=== PATIENT | female | born 1990 | race Caucasian/White ===

== ENCOUNTER 2019-01-26 13:10 | Inpatient (IN) | payer MEDICAID ==
[~2019-01-26] VITALS: Ht 165.1 cm; Wt 78.6 kg
[2019-01-26 13:50] VITALS: Ht 165.1 cm; Wt 78.6 kg
[2019-01-26] MEDS ORDERED: OXYTOCIN 30 UNITS/LR 500 ML IV PRN (17:30)
[2019-01-26] MEDS ORDERED: AMPICILLIN 2 GM/NS (PMX) 100 ML IV ONE (17:30)
[2019-01-26] MEDS ORDERED: BUTORPHANOL 2 MG INJ IV PRN (17:30)
[2019-01-26] MEDS ORDERED: OXYTOCIN 30 UNITS/LR 500 ML IV SCH ×2 (17:30)
[2019-01-26] MEDS ORDERED: METHYLERGONOVINE 0.2 MG INJ IM PRN (17:30)
[2019-01-26] MEDS ORDERED: CARBOPROST 250 MCG INJ IM PRN (17:30)
[2019-01-26] MEDS ORDERED: LIDOCAINE 1% (MPF) 30 ML INJ INJ PRN (17:30)
[2019-01-26] MEDS ORDERED: MISOPROSTOL 200 MCG TAB PR PRN (17:30)
[2019-01-26] MEDS ORDERED: MISOPROSTOL 50 MCG CAPSULE VAG ONE (20:00)
[2019-01-26] MEDS: MISOPROSTOL 50 MCG CAPSULE PO PRN (20:10)
--- NOTE | 2019-01-26 20:16 | HP ---
Date/Time of Note Date/Time of Note DATE: 01/26/19 TIME: 20:11 OB - History Hx of Present Chief Complaint: contractions Estimated Due Date: Jan 24, 2019 : 3 Para: 0 Spontaneous : 2 Therapeutic : 0 Care: Good Care Ultrasounds: Normal mid trimester US Obstetrical Complications: None Medical Complications: None Past Family/Social History * Past Medical, Surgical, Family and Obstetric Histories reviewed from chart. GBS Status: Positive OB Admission Exam Physical Exam HEENT: WNL Heart: Rhythm Normal Lungs: Clear, Equal Abdomen: WNL Extremities: Normal Reflexes: Normal Cervical Dilatation: Fingertip Effacement: 50% Station: -1 Membranes: Intact Heart Rate: 120's Accelerations: Accelerations Present Decelerations: No Decelerations Varibility: Moderate Contractions on Admission: 6-10 Minutes Apart Intensity: Mild Last 72 hours Lab Results CBC & BMP 01/26/19 17:00 OB Assessment/Plan Reason for admission: induction of labor Plan: Induction Induction Method: per Misoprostol Protocol JACKIE PEDRO MD Jan 26, 2019 20:16
[2019-01-26] MEDS: LACTATED RINGER'S 1,000 ML IV SCH (21:25)
[2019-01-26] MEDS ORDERED: AL HYDROX/MG HYDROX/SIMETH 30 ML CUP PO ONE (23:00)
[2019-01-27] MEDS: MISOPROSTOL 50 MCG CAPSULE PO PRN ×4 (00:08→12:08)
[2019-01-27] MEDS: AMPICILLIN 1 GM/NS (PMX) 50 ML IV SCH ×6 (00:08→21:31)
[2019-01-27] MEDS: LACTATED RINGER'S 1,000 ML IV SCH ×4 (05:32→18:04)
[2019-01-27] MEDS ORDERED: FENTAnyl 2MCG/ML-ROPIV 0.2% 100 ML ONE (13:22)
--- NOTE | 2019-01-27 13:28 | PREAC ---
Date/Time of Note Date/Time of Note DATE: 01/27/19 TIME: 13:25 Anesthesia Eval and Record Evaluation Time Pre-Procedure Interview DATE: 01/27/19 TIME: 13:25 Age 28 Sex female NPO: 8 hrs Preoperative diagnosis LABOR PAIN Planned procedure LABOR EPIDURAL Past Medical History Past Medical History: Includes : : (3), Para: (0), Gestational age: (40 3/7 WKS) Surgery & Anesthesia Issues No known issue Meds Anticoagulation: No Beta Delfino within 24 hr: No Reason Beta Delfino not given: Pt. not on B-Delfino Current Medications Lactated Ringer's 1,000 ml @ 125 mls/hr Q8H IV Last administered on 01/27/19at 05:32; Admin Dose 125 MLS/HR; Start 01/26/19 at 17:18 Ampicillin 50 ml @ 100 mls/hr Q4H IV Last administered on 01/27/19at 12:07; Admin Dose 100 MLS/HR; Start 01/26/19 at 21:30 Butorphanol Tartrate (Stadol) 2 mg Q2H PRN IV .PAIN SCALE 6-10 Last administered on 01/27/19at 09:24; Admin Dose 2 MG; Start 01/26/19 at 17:30 Lidocaine (Xylocaine 1% (Mpf)) 30 ml ONCE PRN INJ .EPISIOTOMY; Start 01/26/19 at 17:30 Oxytocin/Lactated Ringer's 500 ml @ 500 mls/hr ONCE POST IV ; Start 01/26/19 at 17:30 Oxytocin/Lactated Ringer's 500 ml @ 125 mls/hr POST IV ; Start 01/26/19 at 17:30 Oxytocin/Lactated Ringer's 500 ml @ 0 mls/hr ONCE PRN IV .VAGINAL BLEEDING; Start 01/26/19 at 17:30 Methylergonovine Maleate (Methergine) 0.2 mg ONCE PRN IM .VAGINAL BLEEDING; Start 01/26/19 at 17:30 Carboprost Tromethamine (Hemabate) 250 mcg ONCE PRN IM .VAGINAL BLEEDING; Start 01/26/19 at 17:30 Misoprostol (Cytotec) 1,000 mcg ONCE PRN NM .VAGINAL BLEEDING; Start 01/26/19 at 17:30 Misoprostol (Cytotec 50 Mcg Capsule) 50 mcg Q4 PRN PO INDUCE LABOR Last administered on 01/27/19at 12:08; Admin Dose 50 MCG; Start 01/26/19 at 20:30 Meds reviewed: Yes Allergies Coded Allergies: No Known Allergy (Unverified , 01/26/19) Allergies Reviewed: Yes Labs/Studies Labs Reviewed: Reviewed by anesthesiologist Result Diagram: 01/26/19 1700 Laboratory Tests 01/26/19 17:00 Blood Bank Test 01/26/19 17:00 Antibody Screen NEGATIVE Blood Type O POSITIVE Rh Immune Globulin Candidate NO test: N/A Pre-procedure Exam Airway: Adequate mouth opening, Adequate thyromental dist Mallampati: Mallampati II Teeth: Normal Lung: Normal Heart: Normal ASA Physical Status ASA physical status: 2 Emergency: None Planned Anesthetic General/MAC: MAC Planned Pain Management Parenteral pain med Pre-operative Attestations Prior to commencing anesthesia and surgery, the patient was re-evaluated, there was verification of: *The patient's identity *The results of appropriate recent lab work and preoperative vital signs *The above evaluation not changing prior to induction *Anesthetic plan, risk benefits, alternative and complications discussed with patient/family; questions answered; patient/family understands, accepts and wishes to proceed. Eladio Joseph M.D. Jan 27, 2019 13:28
[2019-01-27] MEDS ORDERED: ONDANSETRON 4 MG INJ IV PRN (13:30)
[2019-01-27] MEDS ORDERED: FENTAnyl 2MCG/ML-ROPIV 0.2% 100 ML BAG EPI SCH (13:30)
[2019-01-27] MEDS ORDERED: NALOXONE (0.4 MG/ML) INJ IV PRN (13:30)
[2019-01-27] MEDS ORDERED: TRIMETHOBENZAMIDE 100 MG/ML VIAL IM PRN (13:30)
[2019-01-27] MEDS ORDERED: DIPHENHYDRAMINE 50 MG INJ IV PRN (13:30)
--- NOTE | 2019-01-27 14:04 | PAC ---
Date/Time of Note Date/Time of Note DATE: 01/27/19 TIME: 14:03 Post-Anesthesia Notes Post-Anesthesia Note Last documented vital signs HR 77 RR 14 BP 112/65 T 98.6 Activity: WNL Respiratory function: WNL Cardiovascular function: WNL Mental status: Baseline Pain reasonably controlled: Yes Hydration appropriate: Yes Nausea/Vomiting absent: Yes Eladio Joseph M.D. Jan 27, 2019 14:04
[2019-01-27] MEDS ORDERED: OXYTOCIN 30 UNITS/LR 500 ML IV SCH (16:00)
[2019-01-28] MEDS ORDERED: OXYTOCIN 30 UNITS/LR 500 ML IV SCH (01:25)
--- NOTE | 2019-01-28 01:25 | LDN ---
Date/Time of Note Date/Time of Note DATE: 01/28/19 TIME: 01:22 Delivery Summary 01/28/2019 I was called to attend delivery of this patient that currently had been undergoing induction due to postdates. I was called when the patient was . Patient had been managed intrapartum by primary OB. Weeks of Gestation 40 weeks Placenta Delivered: Spontaneously Meconium: none Episiotomy: No Indication for episiotomy N/A Perineal laceration: 2 Laceration repair: Second-degree perineal laceration noted repaired using 2-0 and 3-0 chromic Anesthesia type: Epidural Estimated blood loss: 300 Sponge & Needle done & correct: Yes All needle counts correct: Yes Any foreign bodies felt in the: No Infant Delivery Information Sex Sex: female Apgars 1 Minute: 8 5 Minute: 9 Suctioning Nose & mouth suctioned at baljeet: Yes Delee suction performed: Yes Umbilical Cord Umbilical cord with: 3 Vessels Cord presentations: no nuchal cord Cord Blood was obtained: Yes Mother & Baby Disposition Disposition Placenta delivered complete. Three-vessel cord noted. Fundus was firm at the end of the delivery. Second-degree perineal and vaginal tear repaired using 2-0 and 3-0 chromic. Counts were correct x3. JADE CORBIN MD Jan 28, 2019 01:25
[2019-01-28] MEDS ORDERED: DIPHENHYDRAMINE 25 MG CAP PO PRN (01:30)
[2019-01-28] MEDS ORDERED: NACL 0.9% 3 ML SYG IV SCH (01:30)
[2019-01-28] MEDS ORDERED: CARBOPROST 250 MCG INJ IM PRN (01:30)
[2019-01-28] MEDS ORDERED: ZOLPIDEM 5 MG TAB PO PRN (01:30)
[2019-01-28] MEDS ORDERED: ONDANSETRON 4 MG INJ IV PRN (01:30)
[2019-01-28] MEDS ORDERED: OXYTOCIN 30 UNITS/LR 500 ML IV PRN (01:30)
[2019-01-28] MEDS ORDERED: MISOPROSTOL 200 MCG TAB PR PRN (01:30)
[2019-01-28] MEDS ORDERED: ACETAMINOPHEN 325 MG TAB PO PRN (01:30)
[2019-01-28] MEDS ORDERED: HYDROCODONE/APAP (5/325) TAB PO PRN (01:30)
[2019-01-28] MEDS ORDERED: LANOLIN HPA 1 PKT TOP PRN (01:30)
[2019-01-28 03:29] VITALS: BP 108/62; PULSE 95; RESP 18
[2019-01-28 05:11] VITALS: BP 122/78; PULSE 88; RESP 18
[2019-01-28] MEDS: WITCH HAZEL/GLYCERIN PAD PR PRN (05:48)
[2019-01-28] MEDS: IBUPROFEN 600 MG TAB PO SCH ×4 (05:48→23:39)
[2019-01-28 08:00] VITALS: BP_SYST 113; BP_SYST 116; BP_DIAS 59; BP_DIAS 73; PULSE 90; PULSE 96; RESP 18
[2019-01-28] MEDS: SENNA/DOCUSATE NA (8.6MG/50MG) TAB PO SCH ×2 (09:02→20:27)
[2019-01-28] MEDS: LACTATED RINGER'S 1,000 ML IV SCH (09:18)
[2019-01-28 12:00] VITALS: BP 122/73; PULSE 90; RESP 18
[2019-01-28 19:30] VITALS: BP 125/75; PULSE 81; RESP 18
[2019-01-29] VITALS: BP 112/69; PULSE 73; RESP 19
[2019-01-29 04:08] VITALS: BP 114/69; PULSE 80; RESP 20
[2019-01-29] MEDS: IBUPROFEN 600 MG TAB PO SCH ×4 (05:43→23:46)
[2019-01-29 08:20] VITALS: BP 116/63; PULSE 77; RESP 17
[2019-01-29] MEDS: BENZOCAINE 20% 56 ML SPRAY TOP PRN ×2 (08:33→21:49)
[2019-01-29] MEDS: SENNA/DOCUSATE NA (8.6MG/50MG) TAB PO SCH ×2 (09:00→21:49)
[2019-01-29 16:00] VITALS: BP 118/74; PULSE 78; RESP 18
--- NOTE | 2019-01-29 19:15 | DS ---
Date/Time of Note Date/Time of Note DATE: 01/29/19 TIME: 19:15 Obstetrical Discharge Record Final Diagnosis Final Diagnosis: Term delivered Vaginal Delivery Obstetrical Delivery: Spontaneous Complications Induction: Yes Condition on Discharge Physical Assessment Voiding: Yes Bowel Movement: Yes Breast: Soft, non-tender, Filling Fundus: Firm Calf Tenderness: No Patient Condition: Stable JACKIE PEDRO MD Jan 29, 2019 19:15
[2019-01-29 20:15] VITALS: BP 124/81; PULSE 76; RESP 17
[2019-01-29] MEDS: WITCH HAZEL/GLYCERIN PAD PR PRN (21:49)
[2019-01-30 04:00] VITALS: BP 122/74; PULSE 76; RESP 18
[2019-01-30] MEDS: IBUPROFEN 600 MG TAB PO SCH ×2 (07:15→11:50)
[2019-01-30 07:45] VITALS: BP 122/71; PULSE 74; RESP 18
[2019-01-30] MEDS: BENZOCAINE 20% 56 ML SPRAY TOP PRN (09:58)
[2019-01-30] MEDS: SENNA/DOCUSATE NA (8.6MG/50MG) TAB PO SCH (09:58)
== END 2019-01-30 12:52 | disposition home or self-care (01) | DRG 807 ==
LOC: OBT 13:10 → L-D 13:11 → OBT 16:18 → L-D 16:18 → MS1 01-28 03:15
PROVIDERS: ADMIT Obstetrics & Gynecology; ATTEND Obstetrics & Gynecology
PROC: 3E0P7VZ Introduction of Hormone into Female Reproductive, Via Natural or Artificial Opening (ICD-10-PCS; 2019-01-26)
PROC: 10E0XZZ Delivery of Products of Conception, External Approach (ICD-10-PCS; principal; 2019-01-28)
PROC: 0KQM0ZZ Repair Perineum Muscle, Open Approach (ICD-10-PCS; 2019-01-28)
DX: O48.0 Post-term pregnancy (principal); O70.1 Second degree perineal laceration during delivery; Z3A.40 40 weeks gestation of pregnancy; Z37.0 Single live birth
CPT/HCPCS: 62322; 76815; 76818; 85014; 85018; 85025; 85610; 85730; 86592; 86850; 86900; 86901; 87340; 99464; G0463; J0290; J0595; J2590; J3010; J7120